=== PATIENT | female | born 1995 | race Caucasian/White ===

== ENCOUNTER 2020-03-07 01:18 | Emergency (ER) | payer MEDICAID ==
[~2020-03-07] VITALS: Ht 160 cm; Wt 69.5 kg
[2020-03-07 01:53] VITALS: BP 136/87
[2020-03-07] MEDS ORDERED: PREDNISONE 20MG TABLET PO STA (01:54)
[2020-03-07] MEDS ORDERED: ALBUTEROL (0.083%) 2.5MG/3ML NEB HHN STA (01:54)
[2020-03-07] MEDS ORDERED: IPRATROPIUM BROMIDE (0.02%) 0.5MG/2.5ML NEB HHN STA (01:54)
== END 2020-03-07 03:19 | disposition home or self-care (01) ==
LOC: ER 01:18
DX: J45.901 Unspecified asthma with (acute) exacerbation (principal)
CPT/HCPCS: 94640; 99283; J7512; Z7610